=== PATIENT | male | born 1980 | race Caucasian/White ===

== ENCOUNTER → 2017-03-19 | Outpatient (CLI) | payer BC ==
[~2017-03-19] MED LIST: HYDR15SO8 PO; OMEP20TA7 PO; OXYB5TAB9 PO; TADA5TAB2 PO; VISCOUS XYLOCAINE PO
== END ==
LOC: LAB 11:21
PROVIDERS: ATTEND Urology
DX: N46.9 Male infertility, unspecified (principal)
CPT/HCPCS: 89320